=== PATIENT | female | born 1940 | race Caucasian/White ===

== ENCOUNTER 2018-05-06 12:28 | Day surgery (SDC) | payer MEDICARE ==
[~2018-05-06 12:28] MED LIST: Acetaminophen TAB* 325 MG PO PRN; Buffered Lidocaine 0.9% SYRIN* 5 ML/SYR SYRINGE INTRADERM ONE; Cyclopentolate 1% OPTH.SOL* 2 ML BTL ONE; Ketorolac 0.5% OPHTH (NF) 0.5 % 5 ML BTL ONE; Lidocaine 1%* 5 ML VIAL ONE; Lidocaine 2% EPI 1:200000 MPF*10-20 ML VIAL ONE; Neomycin/Polymy/Dex OPTH.SUSP* MAXITROL 0.1% 5 ML ONE; Phenylephrine 2.5% OPTH.SOL* 2 ML BTL ONE; Povidone Iodine 5% OPTH* 30 ML BTL ONE; Proparacaine 0.5% OPHTH.SOL* 15 ML BTL ONE; acetaZOLAMIDE TAB* 250 MG ONE
[2018-05-06] MEDS ORDERED: Midazolam* 1 MG/ML 5 ML VIAL (5 MG) ONE (14:52)
[2018-05-06 15:57] VITALS: BP 116/60
--- NOTE | 2018-05-07 12:48 | OP ---
ADDENDUM NOW INCLUDED ON THIS REPORT DATE OF OPERATION: 05/06/18 - [facility] DATE OF : 40 SURGEON: Irwin Ruiz M.D. PREOPERATIVE DIAGNOSIS: Cataract, right eye. POSTOPERATIVE DIAGNOSIS: Cataract, right eye. OPERATIVE PROCEDURE: Extracapsular cataract extraction with intraocular lens implant, right eye. DESCRIPTION OF PROCEDURE: The patient was brought to the operating room after being given 1/2% Alcaine with epinephrine drops in the preoperative area. The eye was prepped and draped in the usual sterile fashion. Sterile drape and eyelid speculum were placed. Again, topical 1/2% Alcaine with epinephrine was given. A paracentesis incision was made at the 9 o'clock position with the No.75 blade. Clear cornea incision 2.2 x 2.2-mm was created at the 12 o'clock position starting at the anterior limbus using the 2.2-mm keratome. The anterior chamber was irrigated with 0.4 mL of 1% non-preservative intracameral lidocaine and filled with DisCoVisc. A capsulorrhexis was completed using the cystotome and the Utrata forceps. Hydrodissection was performed with balanced salt solution. The lens nucleus was removed with the Phacoemulsification handpiece without incident. Cortex was removed with the irrigation-aspiration handpiece. The capsular bag was re-inflated using DisCoVisc and an [id number] 23.5 implant was inserted with the shooter. The irrigation-aspiration handpiece was used to remove all residual DisCoVisc. The eye was refilled with balanced salt solution and the wound checked and found to be watertight. Topical Maxitrol drops were given. ADDENDUM: The pupil was very small, so a Malyugin ring was used to dilate the pupil prior to capsulorrhexis and removed after insertion of the lens. Indication for complex cataract surgery: Pupil abnormalities requiring pupil dilation device. [id number]/[facility]PS #: [id number] A- [id number]/CPS #: [id number] MTDMarylin
--- NOTE | 2018-05-07 14:10 | OP ---
OPERATIVE NOTE: ADDENDUM: The pupil was very small, so a Malyugin ring was used to dilate the pupil prior to capsulorrhexis and removed after insertion of the lens. Indication for complex cataract surgery: Pupil abnormalities requiring pupil dilation device. [id number]/CPS #: [id number] MTDD
== END 2018-05-06 15:45 | disposition home or self-care (01) ==
LOC: OREAST 12:28
PROVIDERS: ATTEND Specialist
DX: H25.11 Age-related nuclear cataract, right eye (principal); H18.51 Endothelial corneal dystrophy; Q13.2 Other congenital malformations of iris; Z87.891 Personal history of nicotine dependence; I48.91 Unspecified atrial fibrillation; Z79.01 Long term (current) use of anticoagulants; I10 Essential (primary) hypertension; E05.90 Thyrotoxicosis, unspecified without thyrotoxic crisis or storm; H52.229 Regular astigmatism, unspecified eye; G47.33 Obstructive sleep apnea (adult) (pediatric)
CPT/HCPCS: A9270-GY; J2250; V2632

== ENCOUNTER 2018-05-13 09:39 | Day surgery (SDC) | payer MEDICARE ==
[~2018-05-13 09:39] MED LIST changes: -Cyclopentolate 1% OPTH.SOL* 2 ML BTL ONE; -Ketorolac 0.5% OPHTH (NF) 0.5 % 5 ML BTL ONE; -Lidocaine 1%* 5 ML VIAL ONE; -Lidocaine 2% EPI 1:200000 MPF*10-20 ML VIAL ONE; -Neomycin/Polymy/Dex OPTH.SUSP* MAXITROL 0.1% 5 ML ONE; -Phenylephrine 2.5% OPTH.SOL* 2 ML BTL ONE; -Povidone Iodine 5% OPTH* 30 ML BTL ONE; -Proparacaine 0.5% OPHTH.SOL* 15 ML BTL ONE; -acetaZOLAMIDE TAB* 250 MG ONE
[2018-05-13] MEDS ORDERED: Midazolam* 1 MG/ML 2 ML VIAL (2 MG) ONE ×2 (11:47→12:15)
[2018-05-13 12:38] VITALS: BP 124/68
[2018-05-13] MEDS ORDERED: Povidone Iodine 5% OPTH* 30 ML BTL ONE (15:47)
[2018-05-13] MEDS ORDERED: Cyclopentolate 1% OPTH.SOL* 2 ML BTL ONE (15:47)
[2018-05-13] MEDS ORDERED: Phenylephrine 2.5% OPTH.SOL* 2 ML BTL ONE (15:47)
[2018-05-13] MEDS ORDERED: Lidocaine 1%* 5 ML VIAL ONE (15:47)
[2018-05-13] MEDS ORDERED: Lidocaine 2% EPI 1:200000 MPF*10-20 ML VIAL ONE (15:47)
[2018-05-13] MEDS ORDERED: Proparacaine 0.5% OPHTH.SOL* 15 ML BTL ONE (15:47)
[2018-05-13] MEDS ORDERED: Neomycin/Polymy/Dex OPTH.SUSP* MAXITROL 0.1% 5 ML ONE (15:47)
[2018-05-13] MEDS ORDERED: Ketorolac 0.5% OPHTH (NF) 0.5 % 5 ML BTL ONE (15:47)
--- NOTE | 2018-05-14 02:52 | OP ---
DATE OF OPERATION: 05/13/18 [facility] DATE OF : 40 SURGEON: Irwin Ruiz MD PREOPERATIVE DIAGNOSIS: Cataract, left eye. POSTOPERATIVE DIAGNOSIS: Cataract, left eye. OPERATIVE PROCEDURE: Extracapsular cataract extraction with intraocular lens implant, left eye. DESCRIPTION OF PROCEDURE: The patient was brought to the operating room after being given 1/2% Alcaine with epinephrine drops in the preoperative area. The eye was prepped and draped in the usual sterile fashion. Sterile drape and eyelid speculum were placed. Again, topical 1/2% Alcaine with epinephrine was given. A paracentesis incision was made at the 3 o'clock position with the No.75 blade. Clear cornea incision 2.2 x 2.2-mm was created at the 6 o'clock position starting at the anterior limbus using the 2.2-mm keratome. The anterior chamber was irrigated with 0.4 mL of 1% non-preservative intracameral lidocaine and filled with DisCoVisc. A capsulorrhexis was completed using the cystotome and the Utrata forceps. Hydrodissection was performed with balanced salt solution. The lens nucleus was removed with the Phacoemulsification handpiece without incident. Cortex was removed with the irrigation-aspiration handpiece. The capsular bag was re-inflated using DisCoVisc and an [id number] 24 implant was inserted with the shooter. The pupil was very small, so Malyugin ring was used prior to capsulorrhexis and removed after insertion of the lens. The irrigation-aspiration handpiece was used to remove all residual DisCoVisc. The eye was refilled with balanced salt solution and the wound checked and found to be watertight. Topical Maxitrol drops were given. Indication for complex cataract surgery: Iris abnormalities requiring pupil dilation device. [id number]/[facility] #: [id number] MAXIME
== END 2018-05-13 12:50 | disposition home or self-care (01) ==
LOC: OREAST 09:39
PROVIDERS: ATTEND Specialist
DX: H25.12 Age-related nuclear cataract, left eye (principal); H18.51 Endothelial corneal dystrophy; Q13.2 Other congenital malformations of iris; I48.91 Unspecified atrial fibrillation; Z79.01 Long term (current) use of anticoagulants; I10 Essential (primary) hypertension; E05.90 Thyrotoxicosis, unspecified without thyrotoxic crisis or storm; H52.229 Regular astigmatism, unspecified eye; Z85.3 Personal history of malignant neoplasm of breast; E78.5 Hyperlipidemia, unspecified; I71.4 Abdominal aortic aneurysm, without rupture
CPT/HCPCS: A9270-GY; J2250; V2632

== ENCOUNTER 2019-11-08 10:06 | Observation (INO) | payer MEDICARE ==
[2019-11-08] MEDS ORDERED: Diazepam TAB(*) 5 MG ONE (10:37)
[2019-11-08] MEDS ORDERED: diPHENhydraMINE PO* 25 MG ONE (10:38)
[2019-11-08] MEDS ORDERED: fentaNYL* 50 MCG/ML 2 ML VIAL (100 MCG VIAL) ONE (11:01)
[2019-11-08] MEDS ORDERED: VERAPAMIL 2.5 MG/ML 2 ML VIAL ** 5 mg/2 ml ONE (11:02)
[2019-11-08] MEDS ORDERED: Heparin 2 UNITS/ML IVPREMIX* 2,000 ML IV ONE (11:02)
[2019-11-08] MEDS ORDERED: Heparin(*) 1000 UNIT/ML 10 ML VIAL CATH LAB IV ONE (11:02)
[2019-11-08] MEDS ORDERED: Midazolam* 1 MG/ML 5 ML VIAL (5 MG) ONE (11:02)
[2019-11-08] MEDS ORDERED: nitroGLYCERIN DRIP* 25,000 MCG/250 ML BTL ONE (11:02)
[2019-11-08] MEDS ORDERED: Lidocaine 1% INJ* 10 MG/ML 30 ML SDV ONE (11:03)
[2019-11-08] MEDS ORDERED: Iodixanol 320 (CONTRAST) 100 ML SDV ONE ×2 (11:03→12:57)
[2019-11-08] MEDS ORDERED: Ticagrelor* 90 MG TAB PO ONE (11:56)
[2019-11-08] MEDS ORDERED: diPHENhydraMINE IV* 50 MG/ML 1 ml VIAL (BENADRYL) ONE (12:34)
[2019-11-08] MEDS ORDERED: Acetaminophen TAB* 325 MG PO PRN (13:19)
[2019-11-08] MEDS ORDERED: NS 0.9% 1000 ML** 1,000 ML IV SCH (13:30)
--- NOTE | 2019-11-08 17:08 | CATH ---
"*[facility]* [place] [address] Main: [phone] [email or web address] Cardiac Catheterization Patient: Gladys Rose : 1940 Study Date: 11/08/2019 Age: 78 Gender: F HR: Height: 66 in /167.6 cm BSA: 1.98 m^2 Weight: 181.1 lb /82.3 kg BMI: 29.3 kg/m^2 Beef Cattle Farmer: Lowell De Jesus MD Ordering Physician: Lowell De Jesus MD Referring Physician: Lowell De Jesus MD, Neal Coulter, --- - Left coronary angiography. - Right coronary angiography. Summary: 1. LAD: Mid-vessel lesion: There is a 90% stenosis. 2. Left circumflex: Distal vessel lesion: There is a 60% stenosis. Recommendations: PCI of LAD. History: Functional status: CCS class II (slight limitation of ordinary activity). Risk factors: Hypertension. Dyslipidemia. Medications: The patient received antianginal therapy in the last two weeks, including: beta blockers and calcium channel blockers. Labs, prior tests, procedures, and surgery: Stress myocardial perfusion imaging. Abnormal. High risk of ischemia. Blood tests: International normalized ratio (INR) of 1.4. Partial thromboplastin time (PTT) of 39.7 sec. Serum potassium (K) of 3.8 mEq/l. Serum sodium (Na) of 139 mEq/l. Serum creatinine (current admission) of 0.97 mg/dl. Blood urea nitrogen of 24 mg/dl. Platelet count of 266 th/ul. White blood cell count (WBC) of 0.01 th/ul. Red blood cell count (RBC) of 5000 th/ul. Hematocrit of 47 %. Hemoglobin (pre-procedure) of 16.3 g/dl. Study data: Study status: Cardiac cath: elective. Location: Catheterization laboratory. Consent: The risks, benefits, and alternatives to the procedure were explained to the patient and/or their healthcare financial foundations representative and written informed consent was obtained. All available pre-procedure labs were reviewed. Height: 167.6 cm. 66 in. Weight: 82.3 kg. 181.1 lb. Body surface area: 1.98 m^2. Body mass index: 29.3 kg/m^2. Procedure: 1. Initial setup. The patient was brought to the laboratory. Surface ECG leads, blood pressure measurements, and pulse oximetric signals were monitored. A baseline seven lead ECG was recorded. A time out was observed per protocol. 2. Skin preparation. The planned puncture sites were prepped and draped in the usual sterile manner. 3. Local anesthesia. 1% lidocaine was administered. 4. Sedation. was administered. 5. Supplemental oxygen. Oxygen, 2 L/min was administered throughout the procedure. 6. Local anesthesia. 1% lidocaine (1 ml) was administered. 7. Right radial artery access. A 6F [place]ath Slender sheath was advanced into the vessel. 8. Selective left coronary angiography. A 5F TIG 4.0 catheter was advanced into the left coronary vessel ostium under fluoroscopic guidance. Contrast was injected. Images were obtained in multiple projections. 9. Selective right coronary angiography. A 5F TIG 4.0 catheter was advanced into the right coronary vessel ostium under fluoroscopic guidance. Contrast was injected. Images were obtained in multiple projections. Study completion: Minimal estimated blood loss. All catheters inserted during the procedure were removed. There were no apparent complications. Administered medications: Fentanyl, 25mcg, IV. (Radial) Nitroglycerin, 300mcg, intra-arterially. (Radial) Verapamil, 3mg, intra-arterially. (Radial) Heparin, 3,000units, intra-arterially. VERSED (Midazolam), for a total dose of 2mg, IV. NaCl 0.9% , infusion , at a rate of 75 ml/hr. NaCl 0.9% , 250 ml , bolus. Contrast: Visipaque 60 ml (total dose). Radiation: Fluoroscopy dose: 191.4 cGy. Discharge: The patient tolerated the procedure well and was discharged from the lab in stable condition. Findings Coronary arteries: The coronary circulation is right dominant. Left main: Normal, 0% stenosis. LAD: The proximal vessel is moderately calcified. The middle portion of the vessel is moderately calcified. Mid-vessel lesion: There is a 90% stenosis. Left circumflex: Distal vessel lesion: There is a 60% stenosis. Right coronary: The proximal vessel is mildly calcified. Ostial lesion: There is a 30% stenosis. Proximal vessel lesion: There is a 20% stenosis. Hemodynamics: + + + |Stage description |Condition 1 - | + + + |LV pressure s/d, ed |88/34, 28, dP/pf=859 mm Hg/s| + + + |Arterial pressure s/d (m)|140/63 (97) | + + + Prepared and electronically signed by Lowell De Jesus MD 11/08/2019 17:08"
--- NOTE | 2019-11-08 17:17 | PROCNOTE ---
Cardiology Procedure Note Cardiac Catheterization Report Gladys Rose /Age: 05 1940 78 Medical Record: [id number] Admission Date: Provider: CORONARY INTERVENTION REPORT: DATE OF PROCEDURE: 11/08/2019 INDICATION FOR PROCEDURE: Unstable Angina, High risk stress test results. PROCEDURE: The patient underwent coronary angiography by Dr. De Jesus. A focal, highly calcified mid-LAD lesion was identified and referred for intervention. Using the radial sheath placed during the diagnostic procedure, a 6 [place]ese guide catheter was inserted over a Auguste wire to intubate the left main ostium. After a therapeutic ACT was confirmed, a .014 BMW wire was advanced across the target lesion into the distal LAD. A 2.5 X 8 mm balloon catheter as advanced to the target lesion in successfully inflated to nathan. A 3.0 x 8 mm stent was then successfully implanted with an excellent result, zero residual stenosis and KALLIE 3 flow. Conclusions: Successful PTCA and stent implantation to mid LAD focal 90% lesion to residual stenosis of zero with KALLIE 3 flow at the start and end of the procedure. The patient was returned to her room to recover in stable condition. Complications: None
[2019-11-08] MEDS ORDERED: Coenzyme Q10 (NF) ** ENTER STREGNTH IN LABEL DIRECTIONS PO SCH ×2 (18:00→18:19)
[2019-11-08] MEDS: CMC:Rosuvastatin (NF) 5 MG TAB PO SCH ×2 (18:09→18:10)
[2019-11-08] MEDS ORDERED: ROSUVASTATIN 5 MG PO SCH (18:18)
[2019-11-08] MEDS ORDERED: Ticagrelor* 90 MG TAB PO SCH (23:00)
[2019-11-09 04:46] LABS: ABS Eosinophils 0.3 10^3/ul (0-0.6); ABS Lymphocytes 1.2 10^3/ul (1.0-4.8); ABS Monocytes 0.7 10^3/ul (0-0.8); ABS Neutrophils 6.6 10^3/ul (1.5-7.7); Eosinophil % 3.2 %; Hematocrit 43 % (35-47); Hemoglobin 15.2 g/dL (12.0-16.0); Lymphocyte % 13.3 %; Mean Corpuscular HGB Conc 35 g/dL (31-36); Mean Corpuscular Hemoglobin 32 pg (27-31); Mean Corpuscular Volume 92 fL (80-97); Mean Platelet Volume 8.5 fL (7.4-10.4); Nucleated Red Blood Cells % 0.1; Platelet Count 230 10^3/uL (150-450); Red Blood Count 4.68 10^6 /uL (3.70-4.87); Red Cell Distribution Width 14 % (10-15); White Blood Count 8.8 10^3/uL (3.5-10.8)
[2019-11-09 04:59] LABS: Calcium 9.1 mg/dL (8.6-10.3); EGFR African American 76.2 (>60); Potassium 3.6 mmol/L (3.5-5.0)
[2019-11-09] MEDS ORDERED: Levothyroxine TAB* 100 MCG TAB PO SCH (06:00)
[2019-11-09] MEDS ORDERED: Clopidogrel TAB* 300 MG PO ONE (08:25)
[2019-11-09] MEDS ORDERED: Potassium Chlor TAB* 20 MEQ TAB.ER PO ONE (08:27)
[2019-11-09 08:46] LABS: Magnesium 1.9 mg/dL (1.9-2.7)
[2019-11-09] MEDS ORDERED: Metoprolol Succinate XL TAB* 25 MG PO SCH ×2 (09:00)
[2019-11-09] MEDS ORDERED: Potassium Chlor TAB* 20 MEQ TAB.ER PO SCH (09:00)
--- NOTE | 2019-11-09 10:59 | DS ---
CC: Dr. Tarah Wang * DATE OF ADMISSION: 11/08/19 DATE OF DISCHARGE: Pending no complications, 11/09/19. PRIMARY PROVIDER: Rosemary Estrada NP PRIMARY VP ACCOUNT DIRECTOR: Dr. Tarah Wang. ATTENDING PHYSICIAN: Dr. Lowell De Jesus * (dictated by Adelaida Villalobos NP). ADMITTING DIAGNOSES: 1. High density premature ventricular contraction burden, historically intolerant to higher doses of metoprolol with recent abnormal stress test revealing a small apical infarct with moderate josue-infarct ischemia in the anterior region, here for elective cardiac catheterization. 2. History of paroxysmal atrial fibrillation, historically on metoprolol, diltiazem and Eliquis therapy. 3. History of high density premature ventricular contraction burden, on metoprolol therapy and Cardizem therapy. 4. Mild aortic stenosis dimensionless index 0.48 on 09/02/19 echocardiogram. 5. History of obstructive sleep apnea. DISCHARGE DIAGNOSES: 1. Abnormal stress test revealing small apical infarct with moderate josue- infarct ischemia in the anterior region. The patient underwent elective cardiac catheterization that resulted in 3.0 x 8 mm drug-eluting stent to mid LAD with KALLIE-3 flow at the end of procedure, has residual 60% circumflex lesion , will be treated medically. Given history of paroxysmal atrial fibrillation, AGUSTÍN-VASc 5 with status post PCI to LAD. The patient will go home on clopidogrel 75 mg a day in combination with Xarelto 15 mg a day ([place] AF-PCI trial). 2. History of paroxysmal atrial fibrillation. AGUSTÍN-VASc 5. To go home on Xarelto 15 mg a day in addition to metoprolol 37.5 mg a day. 3. History of hyperlipidemia, on rosuvastatin therapy. LDL 69 on 04/13/19. Goal LDL less than 70. 4. History of high density premature ventricular contraction burden. The patient has had frequent periods of ventricular bigeminy overnight. We will increase metoprolol to 37.5 mg a day. We will update Holter in 2 weeks' time. If high density premature ventricular contraction burden continues to occur despite intervention to LAD, the patient will be considered for electrophysiology referral. Goal is to keep mag greater than 2, K greater than 4. TFTs were recently updated. Free T4 was 1.26. TSH 1.1. PROCEDURES PERFORMED: The patient underwent an elective left heart catheterization with Dr. Lowell De Jesus on 11/08/19 per report; Left main: Normal. No stenosis. LAD proximal vessel is moderately calcified. Mid LAD was moderately calcified. Mid LAD has 90% stenosis. Left circumflex distal lesion 60% stenosis. Right coronary artery proximal vessel was mildly calcified with 30% stenosis. INTERVENTION PERFORMED: Dr. Marlen Portillo, centrifugal casting machine operator, successfully did PTCA/3.0 x 8 mm drug-eluting stent to mid LAD with KALLIE-3 flow post intervention. COMPLICATIONS: None. COURSE OF THE HOSPITAL STAY: This is a pleasant 78-year-old female patient, follows Dr. Tarah Wang of our practice due to a notable history of paroxysmal atrial fibrillation on metoprolol, Cardizem and Eliquis therapy, in addition to hypertension, high density PVC burden with recent modest reduction in LV function based on August 2019 echocardiogram, LVEF was 50% to 55% with mild aortic stenosis. She is risk stratified with exercise nuclear stress test which revealed a small apical infarct with moderate josue-infarct ischemia. Thus she presented to [facility] on 11/08/19 for an elective cardiac catheterization to determine if etiology of high density burden was related to ischemia. Prior to procedure, the patient held Eliquis for 48 hours. She had basic blood work obtained on 11/05/19. At that time, white count 6.7, hemoglobin of 16.3, hematocrit 47%, platelets 266, sodium 139, potassium 3.8, creatinine 0.97, INR 1.4. She was on aspirin 81 mg a day in preparation for cardiac catheterization. She underwent the above mentioned procedure. She underwent successful PTCA/SHORTY to mid LAD and was admitted overnight to the ICU where she has been monitored on telemetry. She continues to have frequent ventricular ectopy with periods of frequent ventricular bigeminy. Metoprolol was increased to 37.5 mg this morning in an attempt to reduce to ventricular ectopy. Current vital signs. Pulse is 81, respirations 17, oxygenation 94% on room air, blood pressure 122/64. This morning blood work, 11/09/19 was reviewed. Sodium 136, potassium 3.6 (replaced), creatinine 0.87, white count 8.8, hemoglobin 15.2, platelets 230,000. She has been stable and asymptomatic. Her right radial access site was examined, 3 plus radial pulse, nontender to palpation, no thrill, no hematoma. Given known history of paroxysmal atrial fibrillation, AGUSTÍN-VASc 5, status post PCI, it was decided to discontinue Brilinta, transitioned to Plavix with a 300 mg loading dose this morning and to discharge her home on clopidogrel 75 mg a day in combination with Xarelto 15 mg a day ([place] AF-PCI). The patient denies history of bleeding events. Denies ever being on Plavix or Xarelto in the past. Pending response to medication changes, she will go home later today in stable condition. DISPOSITION: Stable to be discharged home, pending no complications. FOLLOWUP APPOINTMENTS: 1. The patient is to follow up with Dr. Lowell De Jesus, on 11/16/19 at 12:45 at our medical office building. 2. Brittny Munroe, nurse practitioner, 11/30/19 at 10:45 in the morning. 3. Rosemary Estrada, nurse practitioner in 7 to 10 days. OUTPATIENT STUDIES TO BE OBTAINED: The patient is to have Holter monitor in the week of 11/23/19 to reassess PVC burden status post PCI and medication changes. This will be reviewed in followup on 11/30/19. ACTIVITY RESTRICTIONS: The patient was advised not to drive for 48 hours, not lift more than 5 to 10 pounds until further directed in followup. She may shower tomorrow 11/10/19, but she is not to soak right radial access site wound. DISCHARGE MEDICATIONS: The patient is to go home on: 1. Plavix 75 mg a day. 2. Xarelto 15 mg p.o. daily with evening meals. 3. Rosuvastatin 5 mg a day. 4. Metoprolol 37.5 mg a day. 5. Levothyroxine 100 mcg a day. 6. Diltiazem 120 mg a day. 7. Magnesium oxide 400 mg a day. 8. Potassium chloride 20 mEq a day. 9. CPAP as directed. Medications discontinued: 1. Hydrochlorothiazide 25 mg a day. 2. Eliquis 5 mg p.o. b.i.d. 3. Aspirin [address] Lowell De Jesus has personally seen and examined the patient and agrees with the above assessment and plan. We will reassess after medication changes this morning, and if stable, the patient is to be discharged home in stable condition. ADELAIDA VILLALOBOS, LEAD SOFTWARE TEST ENGINEER [id number]/[facility] #: [id number] [facility] HOSPITALMarylin
[2019-11-09 13:23] VITALS: BP 118/70
--- NOTE | 2019-11-09 16:03 | PROCNOTE ---
Cardiology Procedure Note Cardiac Catheterization Report Gladys Rose /Age: 05 1940 78 Medical Record: [id number] Admission Date: Provider: Lowell De Jesus MD CORONARY INTERVENTION REPORT: DATE OF PROCEDURE: 11/08/2019 INDICATION FOR PROCEDURE: Unstable Angina, high risk stress test results. PROCEDURE: The patient underwent coronary angiography by Dr. De Jesus. A focal, highly calcified mid-LAD lesion was identified and referred for intervention. Using the radial sheath placed during the diagnostic procedure, a 6 VL 3.5 [place] guide catheter was inserted over a Auguste wire to intubate the left main ostium. After a therapeutic ACT was confirmed, a .014 BMW wire was advanced across the target lesion into the distal LAD. A 2.5 X 8 mm NC emerge balloon catheter was advanced to the target lesion in successfully inflated to 8 nathan for 6 seconds, followed by a second inflation to 16 nathan for 10 seconds. The emerge catheter was removed and a 3.0 x 8 mm Synergy stent was then successfully deployed at 14 nathan for 15 seconds. There was an excellent result, zero residual stenosis and KALLIE 3 flow. EQUIPMENT UTILIZED and MEDICATIONS GIVEN: See procedure log. Conclusions: 1. Successful PTCA and drug eluting stent implantation to a calcified mid LAD focal 90% lesion. The residual stenosis was zero with KALLIE 3 flow at the start and end of the procedure. The patient was returned to her room to recover in stable condition. 2. Suggest: Dual antiplatelet therapy and risk factor modification. Complications: None
[2019-11-09] MEDS ORDERED: Rivaroxaban TAB(*) 15 MG PO SCH (18:00)
[2019-11-10] MEDS ORDERED: Diltiazem CD CAP* 120 MG PO SCH (09:00)
[2019-11-10] MEDS ORDERED: Clopidogrel TAB* 75 MG PO SCH (09:00)
== END 2019-11-09 14:00 | disposition home or self-care (01) ==
LOC: CHICATH 10:06 → ICU 13:16
PROVIDERS: ADMIT Specialist; ATTEND Specialist
DX: I49.3 Ventricular premature depolarization (principal); R07.89 Other chest pain; I48.0 Paroxysmal atrial fibrillation; I20.0 Unstable angina; G47.33 Obstructive sleep apnea (adult) (pediatric); R06.02 Shortness of breath; R94.31 Abnormal electrocardiogram [ECG] [EKG]; R94.39 Abnormal result of other cardiovascular function study; Z79.01 Long term (current) use of anticoagulants; Z79.899 Other long term (current) drug therapy; Z79.82 Long term (current) use of aspirin; Z79.890 Hormone replacement therapy
CPT/HCPCS: 36415; 80048; 83735; 85025; 85347; 93005; 93454; 99156; 99157; A9270-GY; C1725; C1769; C1876; C1887; C9600-LD; G0378; J1200; J1644; J2250; J3010